=== PATIENT | female | born 1985 | race Caucasian/White ===

== ENCOUNTER 2016-06-10 03:41 | Emergency (ER) | payer SELFPAY ==
[2016-06-10 03:42] VITALS: BP 162/83; PULSE 83; RESP 16; TEMP 98.1; O2SAT 98
[2016-06-10] MEDS ORDERED: METF500T PO (03:59)
[2016-06-10] MEDS ORDERED: CYCL1TAB29 PO (03:59)
[2016-06-10] MEDS ORDERED: TRAM50TA PO (03:59)
[2016-06-10] MEDS ORDERED: NAPR500T PO (03:59)
[2016-06-10] MEDS ORDERED: SODIUM CHLOR 0.9% 1000 ML INJ 1,000 ML IV SCH (04:13)
[2016-06-10] MEDS ORDERED: ONDANSETRON HCL 4 MG/2 ML VIAL IVP ONE (04:15)
[2016-06-10] MEDS ORDERED: SODIUM CHLORIDE 0.9% FLUSH 10 ML FLUSH IV FLUSH PRN (04:15)
[2016-06-10 04:40] LABS: AUTOMATED NEUTROPHIL # 6.1 TH/MM3 (1.8-7.7); BASOPHIL # 0.1 TH/MM3 (0-0.2); BASOPHIL % 0.6 % (0.0-2.0); EOSINOPHIL # 0.2 TH/MM3 (0-0.4); EOSINOPHIL % 1.3 % (0.0-4.0); HEMATOCRIT 35.9 % (35.0-46.0); LYMPH % 36.6 % (9.0-44.0); LYMPHOCYTE # 4.3 TH/MM3 (1.0-4.8); MEAN CELL VOLUME 74.1 FL (80.0-100.0); MONO % 9.9 % (0.0-8.0); NEUT % 51.6 % (16.0-70.0); PLATELET COUNT 320 TH/MM3 (150-450); RED BLOOD COUNT 4.85 MIL/MM3 (4.00-5.30); RED CELL DISTRIBUTION WIDTH 17.3 % (11.6-17.2); WHITE BLOOD COUNT 11.8 TH/MM3 (4.0-11.0)
[2016-06-10 04:46] LABS: HEMO FLAGS AUTO DIFF
--- NOTE | 2016-06-10 04:58 | PD ---
HPI Chief Complaint: Skin Problem Time Seen by Provider: 04:13 Travel History International Travel<30 days: No Contact w/Intl Traveler<30days: No Traveled to known affect area: No History of Present Illness HPI 30-year-old female arrives complaining of discharge from the umbilicus. It has been present for about 1 day. She's had no fever. A similar event occurred 2 years ago following an inpatient admission. The patient was found to have a kidney abscess that time. The abdomen is painful when the patient moves. Today 's episode is worse than it was a year prior. Hx DM2 reported. Patient has no past medical or past surgical history otherwise. PFSH Past Medical History Anemia: Yes Diabetes: Yes (METFORMIN) Patient Takes Glucophage: Yes Diminished Hearing: No ?: Not LMP: CURRENTLY Past Surgical History Surgical History: No Previous Surgery Social History Alcohol Use: No Tobacco Use: No (quit 2 yrs ago) Substance Use: No Allergies-Medications (Allergen,Severity, Reaction): Coded Allergies: No Known Allergies (Unverified , 06/10/16) Reported Meds & Prescriptions Reported Meds & Active Scripts Active Clotrimazole Lucius (Clotrimazole) 10 Mg Troc 10 Mg PO 5 TIMES A DAY 5 Days Clindamycin (Clindamycin HCl) 150 Mg Cap 450 Mg PO Q8HR 10 Days Reported Tramadol (Tramadol HCl) 50 Mg Tab 50 Mg PO Q6H PRN Naproxen 500 Mg Tab 500 Mg PO BID Flexeril (Cyclobenzaprine HCl) 10 Mg Tab 10 Mg PO TID Metformin (Metformin HCl) 500 Mg Tab 500 Mg PO DAILY With a meal Review of Systems Except as stated in HPI: all other systems reviewed are Neg General / Constitutional: No: Fever Physical Exam Narrative GENERAL: 30 yo F, pleasant, WNWD SKIN: Warm and dry. HEAD: Atraumatic. Normocephalic. EYES: Pupils equal and round. No scleral icterus. No injection or drainage. ENT: No nasal bleeding or discharge. Mucous membranes pink and moist. NECK: Trachea midline. No JVD. CARDIOVASCULAR: Regular rate and rhythm. RESPIRATORY: No accessory muscle use. Clear to auscultation. Breath sounds equal bilaterally. GASTROINTESTINAL: Abdomen soft. Purulent discharge at umbilicus. TTP at umbilicus. Remainder of abdomen is non-tender. MUSCULOSKELETAL: Extremities without clubbing, cyanosis, or edema. No obvious deformities. NEUROLOGICAL: Awake and alert. No obvious cranial nerve deficits. Motor grossly within normal limits. Five out of 5 muscle strength in the arms and legs. Normal speech. PSYCHIATRIC: Appropriate mood and affect; insight and judgment normal. Data Data Last Documented VS Vital Signs Date Time Temp Pulse Resp B/P Pulse Ox O2 Delivery O2 Flow Rate FiO2 06/10/16 05:30 18 96 Room Air 06/10/16 03:42 98.1 83 162/83 VS reviewed Orders Complete Blood Count With Diff (06/10/16 04:13) Comprehensive Metabolic Panel (06/10/16 04:13) Lactic Acid (06/10/16 04:13) Urinalysis - C+S If Indicated (06/10/16 04:13) Ct Abd/Pel W/O Iv Contrast (06/10/16 04:13) Iv Access Insert/Monitor (06/10/16 04:13) Ecg Monitoring (06/10/16 04:13) Oximetry (06/10/16 04:13) Ondansetron Inj (Zofran Inj) (06/10/16 04:15) Sodium Chlor 0.9% 1000 Ml Inj (Ns 1000 M (06/10/16 04:13) Sodium Chloride 0.9% Flush (Ns Flush) (06/10/16 04:15) Ed Urine Pregnancytest Poc (06/10/16 04:13) Clindamycin (Cleocin) (06/10/16 07:00) Labs Laboratory Tests Test 06/10/16 06/10/16 04:25 05:05 White Blood Count 11.8 TH/MM3 Red Blood Count 4.85 MIL/MM3 Hemoglobin 11.1 GM/DL Hematocrit 35.9 % Mean Corpuscular Volume 74.1 FL Mean Corpuscular Hemoglobin 23.0 PG Mean Corpuscular Hemoglobin 31.0 % Concent Red Cell Distribution Width 17.3 % Platelet Count 320 TH/MM3 Mean Platelet Volume 9.2 FL Neutrophils (%) (Auto) 51.6 % Lymphocytes (%) (Auto) 36.6 % Monocytes (%) (Auto) 9.9 % Eosinophils (%) (Auto) 1.3 % Basophils (%) (Auto) 0.6 % Neutrophils # (Auto) 6.1 TH/MM3 Lymphocytes # (Auto) 4.3 TH/MM3 Monocytes # (Auto) 1.2 TH/MM3 Eosinophils # (Auto) 0.2 TH/MM3 Basophils # (Auto) 0.1 TH/MM3 CBC Comment AUTO DIFF Differential Comment AUTO DIFF CONFIRMED Sodium Level 139 MEQ/L Potassium Level 3.9 MEQ/L Chloride Level 106 MEQ/L Carbon Dioxide Level 26.0 MEQ/L Anion Gap 7 MEQ/L Blood Urea Nitrogen 6 MG/DL Creatinine 0.66 MG/DL Estimat Glomerular Filtration 106 ML/MIN Rate Random Glucose 159 MG/DL Lactic Acid Level 1.7 mmol/L Calcium Level 8.8 MG/DL Total Bilirubin 0.3 MG/DL Aspartate Amino Transf 55 U/L (AST/SGOT) Alanine Aminotransferase 86 U/L (ALT/SGPT) Alkaline Phosphatase 107 U/L Total Protein 7.7 GM/DL Albumin 3.4 GM/DL Urine Color LIGHT-YELLOW Urine Turbidity CLEAR Urine pH 6.5 Urine Specific [place] 1.003 Urine Protein NEG mg/dL Urine Glucose (UA) NEG mg/dL Urine Ketones NEG mg/dL Urine Occult Blood MOD Urine Nitrite NEG Urine Bilirubin NEG Urine Urobilinogen LESS THAN 2.0 MG/DL Urine Leukocyte Esterase NEG Urine RBC LESS THAN 1 /hpf Urine WBC 1 /hpf Urine Squamous Epithelial <1 /hpf Cells Microscopic Urinalysis Comment CULT NOT INDICATED MDM Medical Decision Making Medical Screen Exam Complete: Yes Emergency Medical Condition: Yes Differential Diagnosis Constipation, Gastritis, Acute Cholecystitis, Biliary Colic, Pancreatitis, ALBA , Hepatitis, Bowel Obstruction, Cystitis, Mesenteric Ischemia, AAA, Appendicitis , Renal Stone/Hydronephrosis, GERD, perforated viscous Narrative Course CBC & BMP Diagram 06/10/16 04:25 AST 55 ALT 86 LA 1.7 UA: no uti Last 24 hours Impressions Abdomen/Pelvis CT 06/10/16 0413 Signed Impressions: Service Date/Time: Friday, June 10, 2016 05:53 - CONCLUSION: 1. There is mild inflammation in the subcutaneous fat at the umbilicus but no fluid collection or abscess is visualized. 2. Nonacute findings include hepatic steatosis and right paraovarian cyst. The endometrium appears thickened. Lupillo Valencia MD Patient has remained comfortable during ER stay. We can discharge with antibiotics. Follow-up exam in 2 days. Diagnosis Primary Impression: Cellulitis Qualified Code: L03.316 - Cellulitis of umbilicus Additional Impressions: Umbilicus discharge Omphalitis in adult Referrals: General Surgeon 2 days Primary Care Physician 2 days Additional Instructions: You have a choice when it comes to health care, and we are glad that you chose [facility]. Hopefully, we have met your expectations on today's visit. You are welcome to return to [facility] at any time, as we are committed to meeting the health care needs of our community. Med/Other Pt SpecificInfo: Prescription(s) given Scripts Clotrimazole Lucius 10 Mg Troc10 Mg PO 5 TIMES A DAY 5 Days Ref 0 Prov:Brandon Bills MD 06/10/16 Clindamycin 150 Mg [id number] Mg PO Q8HR 10 Days Ref 0 Prov:Brandon Bills MD 06/10/16 Disposition: 01 DISCHARGE HOME Condition: Stable Brandno Bills MD Jun 10, 2016 04:58
[2016-06-10 05:09] LABS: ALT (GPT) 86 U/L (10-53); ANION GAP 7 MEQ/L (5-15); AST (GOT) 55 U/L (15-37); BLOOD UREA NITROGEN 6 MG/DL (7-18); CHLORIDE 106 MEQ/L (98-107); GLOMERULAR FILTRATION RATE 106 ML/MIN (>89); POTASSIUM 3.9 MEQ/L (3.5-5.1); SODIUM (NA) 139 MEQ/L (136-145)
[2016-06-10 05:11] LABS: ALKALINE PHOSPHATASE 107 U/L (45-117); TOTAL BILIRUBIN ADULT 0.3 MG/DL (0.2-1.0)
[2016-06-10 05:19] LABS: SCAN/DIFF AUTO DIFF CONFIRMED
[2016-06-10 05:30] VITALS: RESP 18; O2SAT 96
[2016-06-10 05:32] LABS: BLOOD, URINE MOD (NEG); COMMENT (UR) CULT NOT INDICATED; CULTURE IF INDICATED CULT NOT INDICATED; GLUCOSE,URINE NEG (NEG); KETONE, URINE NEG (NEG); NITRITE,URINE NEG (NEG); PH, URINE 6.5 (5.0-8.5); SQUAMOUS EPITHELIAL CELL URINE <1 /hpf (0-5); URINE COLOR LIGHT-YELLOW (YELLW/STRAW)
--- NOTE | 2016-06-10 06:15 | RADRPT ---
EXAM DATE/TIME: 06/10/2016 05:53 [facility] COMPARISON: No previous studies available for comparison. INDICATIONS : Abdominal pain with purulent discharge from umbilicus. ORAL CONTRAST: No oral contrast ingested. RADIATION DOSE: 22.64 CTDIvol (mGy) MEDICAL HISTORY : Diabetes mellitus type 2. SURGICAL HISTORY : None. ENCOUNTER: Initial ACUITY: 1 day PAIN SCALE: 4/10 LOCATION: umbilicus TECHNIQUE: Volumetric scanning of the abdomen and pelvis was performed. Using automated exposure control and ad justment of the mA and/or kV according to patient size, radiation dose was kept as low as reasonably achievable to obtain optimal diagnostic quality images. FINDINGS: LOWER LUNGS: The visualized lower lungs are clear. LIVER: Abnormal low density without lesion. There is no dilation of the biliary tree. No calcified gallsto anabela. SPLEEN: Normal size without lesion. PANCREAS: Within normal limits. KIDNEYS: Normal in size and shape. There is no mass, stone, or hydronephrosis. ADRENAL GLANDS: Within normal limits. VASCULAR: There is no aortic aneurysm. BOWEL/MESENTERY: The stomach, small bowel, and colon demonstrate no acute abnormality. There is no free intraperitone al air or fluid. ABDOMINAL WALL: There is mild induration of the subcutaneous fat at the umbilicus. No fluid collection or abscess is visualized. RETROPERITONEUM: There is no lymphadenopathy. BLADDER: No wall thickening or mass. REPRODUCTIVE: There is a right paraovarian cyst measuring 2.5 cm. Endometrium is mildly thickened. INGUINAL: There is no lymphadenopathy or hernia. MUSCULOSKELETAL: There are degenerative changes of the spine. CONCLUSION: 1. There is mild inflammation in the subcutaneous fat at the umbilicus but no fluid collection or abs cess is visualized. 2. Nonacute findings include hepatic steatosis and right paraovarian cyst. The endometrium appears th ickened. Lupillo Valencia MD on June 10, 2016 at 6:10 Board Certified Radiologist. This report was verified electronically.
[2016-06-10] MEDS ORDERED: CLIN1CAP5 PO (06:37)
[2016-06-10] MEDS ORDERED: CLOT10TR PO (06:57)
[2016-06-10] MEDS ORDERED: CLINDAMYCIN 150 MG CAP PO ONE (07:00)
== END 2016-06-10 07:28 | disposition home or self-care (01) ==
LOC: NEPC 03:41
DX: L03.316 Cellulitis of umbilicus (principal); E11.9 Type 2 diabetes mellitus without complications; Z79.84 Long term (current) use of oral hypoglycemic drugs
CPT/HCPCS: 74176; 80053; 81001; 83605; 84703; 85025; 96361; 96374; 99284; J2405; J7030